=== PATIENT | female | born 1960 | race Caucasian/White ===

== ENCOUNTER 2019-05-14 15:56 | Emergency (ER) | payer OTHER ==
[~2019-05-14] VITALS: Ht 157.5 cm; Wt 47.2 kg
[2019-05-14] MEDS ORDERED: HYDROXYZINE HCL10 M1 PO (16:13)
[2019-05-14] MEDS ORDERED: CO Q-10100 MG PO (16:13)
[2019-05-14] MEDS ORDERED: ZOCOR20 MG PO (16:13)
[2019-05-14] MEDS ORDERED: PROAIR HFA8.5 GM PO (16:14)
[2019-05-14] MEDS ORDERED: SINGULAIR 10 MG10 M1 PO (16:14)
[2019-05-14] MEDS ORDERED: WELLBUTRIN XL150 MG PO (16:14)
[2019-05-14] MEDS ORDERED: VITAMIN B-12500 MCG PO (16:15)
[2019-05-14] MEDS ORDERED: LOVAZA1000 MG PO (16:15)
[2019-05-14] MEDS ORDERED: NORCO 5-325 TA1 EAC1 PO (16:54)
[2019-05-14] MEDS ORDERED: MEDROLDOSEPACK PO (16:54)
[2019-05-14 17:26] VITALS: BP 113/55
== END 2019-05-14 17:23 | disposition home or self-care (01) ==
LOC: M.ERS 15:56
DX: M25.551 Pain in right hip (principal); J44.9 Chronic obstructive pulmonary disease, unspecified; E78.5 Hyperlipidemia, unspecified; F32.9 Major depressive disorder, single episode, unspecified; F41.9 Anxiety disorder, unspecified; Z88.0 Allergy status to penicillin

== ENCOUNTER → 2019-05-16 | Outpatient (CLI) | payer OTHER ==
[~2019-05-16] MED LIST: CO Q-10100 MG PO; HYDROXYZINE HCL10 M1 PO; LOVAZA1000 MG PO; MEDROLDOSEPACK PO; NORCO 5-325 TA1 EAC1 PO; PROAIR HFA8.5 GM PO; SINGULAIR 10 MG10 M1 PO; VITAMIN B-12500 MCG PO; WELLBUTRIN XL150 MG PO; ZOCOR20 MG PO
== END ==
LOC: M.RAD 13:00
DX: Z12.31 Encounter for screening mammogram for malignant neoplasm of breast (principal)

== ENCOUNTER → 2019-05-26 | Outpatient (CLI) | payer OTHER | LOC: M.MRI 16:30 | DX: S73.191A Other sprain of right hip, initial encounter (principal); M16.11 Unilateral primary osteoarthritis, right hip; X58.XXXA Exposure to other specified factors, initial encounter; Y93.89 Activity, other specified; Y92.89 Other specified places as the place of occurrence of the external cause; Y99.8 Other external cause status ==